=== PATIENT | female | born 1980 | race Caucasian/White ===

== ENCOUNTER → 2017-04-01 | Outpatient (CLI) | payer OTHER ==
[~2017-04-01] MED LIST: CEPHALEXIN500 M1 PO; CLARITIN 1010 MG/TAB PO; ESTRACE2 MG PO; NASACORT AQ N16.5 GM NS; PERCOCET 325 MG1 TA2 PO; PRIL40 PO
== END ==
LOC: COL.VAS 03-24 11:00
DX: I10 Essential (primary) hypertension (principal); R61 Generalized hyperhidrosis

== ENCOUNTER → 2017-08-07 | Outpatient (CLI) | payer OTHER | LOC: BHSO 10:15 | DX: F33.1 Major depressive disorder, recurrent, moderate (principal) | CPT/HCPCS: 90791-AI ==

== ENCOUNTER → 2017-09-08 | Outpatient (CLI) | payer BC | LOC: BHSO 08:31 | DX: F33.41 Major depressive disorder, recurrent, in partial remission (principal) ==

== ENCOUNTER → 2018-07-20 | Outpatient (CLI) | payer BC | LOC: BHSO 10:38 | DX: F41.1 Generalized anxiety disorder (principal) | CPT/HCPCS: G0463 ==

== ENCOUNTER → 2019-01-18 | Outpatient (CLI) | payer BC | LOC: BHSO 10:27 | DX: F33.42 Major depressive disorder, recurrent, in full remission (principal) | CPT/HCPCS: G0463 ==

== ENCOUNTER 2019-02-01 10:45 | Outpatient (RCR) | payer BC | END 2019-03-04 11:16 | disposition home or self-care (01) | LOC: WSC 10:45 | DX: M54.5 Low back pain (principal); G89.29 Other chronic pain ==

== ENCOUNTER → 2019-02-24 | Outpatient (CLI) | payer BC | LOC: MC.RAD 02-01 11:00 | DX: Z12.31 Encounter for screening mammogram for malignant neoplasm of breast (principal) ==

== ENCOUNTER → 2019-05-03 | Outpatient (CLI) | payer BC | LOC: COL.VAS 13:23 | DX: M79.605 Pain in left leg (principal); M79.89 Other specified soft tissue disorders ==

== ENCOUNTER → 2019-06-13 | Outpatient (CLI) | payer BC | LOC: COL.RAD 13:15 | DX: M25.531 Pain in right wrist (principal) | CPT/HCPCS: J3301; Q9967 ==

== ENCOUNTER 2019-06-17 14:15 | Outpatient (RCR) | payer BC | END 2019-06-27 | disposition home or self-care (01) | LOC: WSPT | DX: M54.5 Low back pain (principal) ==

== ENCOUNTER → 2019-08-24 | Outpatient (CLI) | payer BC | LOC: BHSO 14:33 | DX: F33.42 Major depressive disorder, recurrent, in full remission (principal) | CPT/HCPCS: G0463 ==

== ENCOUNTER → 2019-09-13 | Outpatient (CLI) | payer BC | LOC: COL.RAD 08:33 | DX: M25.531 Pain in right wrist (principal) | CPT/HCPCS: J3301; Q9967 ==

== ENCOUNTER 2019-09-16 13:00 | Outpatient (RCR) | payer BC | END 2019-09-29 | disposition home or self-care (01) | LOC: WSPT | DX: G89.29 Other chronic pain (principal); M54.5 Low back pain; M79.605 Pain in left leg ==

== ENCOUNTER 2019-10-03 13:00 | Outpatient (RCR) | payer BC | END 2019-12-28 15:18 | disposition home or self-care (01) | LOC: WSPT 13:00 | DX: M54.5 Low back pain (principal); M79.662 Pain in left lower leg; G89.29 Other chronic pain ==